=== PATIENT | female | born 1970 | race Two or more races ===

== ENCOUNTER 2018-07-25 06:10 | Day surgery (SDC) | payer OTHER ==
[~2018-07-25] VITALS: Ht 162.6 cm; Wt 82.1 kg
[2018-07-25 06:24] VITALS: BP 145/79
[2018-07-25 14:02] VITALS: BP 135/86
== END 2018-07-25 13:50 | disposition home or self-care (01) ==
LOC: DS 06:10
PROVIDERS: Obstetrics & Gynecology
PROC: 0U5B7ZZ Destruction of Endometrium, Via Natural or Artificial Opening (ICD-10-PCS; principal; 2018-07-25 08:30)
DX: N92.1 Excessive and frequent menstruation with irregular cycle (principal); E66.9 Obesity, unspecified
CPT/HCPCS: J0690; J1170; J2405; J2704; J3010; J7120

== ENCOUNTER 2018-12-19 06:58 | Observation (INO) | payer OTHER ==
[~2018-12-19] VITALS: Ht 162.6 cm; Wt 66.2 kg
[2018-12-19 07:25] VITALS: BP 141/82
[2018-12-19 10:48] VITALS: BP 121/67
[2018-12-19 17:36] VITALS: BP 119/79
[2018-12-19 21:21] VITALS: BP 132/82
[2018-12-20 04:54] VITALS: BP 106/65
[2018-12-20 06:53] LABS: BASOPHIL % 0.2 % (0-2); PLATELET COUNT 182 x10^3mcL (130-400); RED CELL DISTRIBUTION WIDTH 14.5 % (11.5-14.5)
[2018-12-20 09:49] VITALS: BP 123/71
[2018-12-20 10:51] VITALS: BP 123/71
== END 2018-12-20 14:26 | disposition home or self-care (01) | DRG 514 ==
LOC: MU 06:58
PROVIDERS: ADMIT Obstetrics & Gynecology
PROC: 0JQC0ZZ Repair Pelvic Region Subcutaneous Tissue and Fascia, Open Approach (ICD-10-PCS; principal; 2018-12-19 08:30)
DX: N81.11 Cystocele, midline (principal); N39.3 Stress incontinence (female) (male); N81.6 Rectocele
CPT/HCPCS: C1758; G0378; J0690; J1170; J2405; J2704; J3010; J7120